=== PATIENT | female | born 1990 | race Caucasian/White ===

== ENCOUNTER 2024-12-12 23:43 | Emergency (ER) | payer MEDICAID, SELFPAY ==
[2024-12-12 23:46] VITALS: BMI 36.6
[2024-12-12 23:55] VITALS: BP 141/96; PULSE 96; RESP 18; TEMP 36.7; O2SAT 96
--- NOTE | 2024-12-13 00:09 | PD.EDUPEX ---
Upper Extremity Injury RME/HPI General Chief Complaint: Extremity Injury, Upper Stated Complaint: STABBED LEFT FA WITH TRACY NAIL ACCIDENTALLY Time Seen by Provider: 12/12/24 23:49 Source: patient Arrival date/time: 12/12/24 23:43 This is a case of 34-year-old female with no medical history came into the emergency room due to a punctured wound on the left forearm 1 hour prior to arrival in the emergency room patient accidentally punctured his left forearm while cleaning at the house patient tetanus shot is not up today no other symptoms or injury noted Limitations: no limitations Related Data Previous Rx's ?Medication ?Instructions ?Recorded mupirocin 2 % topical ointment 1 applic topical BID #22 grams 12/13/24 sulfamethoxazole 800 1 tab PO BID #20 tabs 12/13/24 mg-trimethoprim 160 mg tablet (Bactrim DS) Allergies Allergy/AdvReac Type Severity Reaction Status Date / Time azithromycin Allergy Gastrointestinal Verified 12/12/24 23:45 Upset cephalexin (From Keflex) Allergy Gastrointestinal Verified 12/12/24 23:45 Upset Review of Systems Review of Systems Systems Reviewed: All systems reviewed, normal except as documented Constitutional Constitutional: Reports system reviewed and no additional complaints, except as documented and Reports as per HPI Cardiovascular Cardiovascular: Reports system reviewed and no additional complaints, except as documented and Reports as per HPI Respiratory Respiratory: Reports system reviewed and no additional complaints, except as documented and Reports as per HPI Gastrointestinal Gastrointestinal: Reports system reviewed and no additional complaints, except as documented and Reports as per HPI Musculoskeletal Musculoskeletal: Reports system reviewed and no additional complaints, except as documented and Reports as per HPI Neurologic Neurologic: Reports system reviewed and no additional complaints, except as documented and Reports as per HPI Past Medical History Social History SMOKING STATUS: Never smoker ED Exam General Limitations: Present no limitations General appearance: Present alert, in no apparent distress and other (Patient is awake alert oriented not in distress nontoxic looking well-hydrated well-nourished) Head Head exam: Present atraumatic, normocephalic and normal inspection Eye Eye exam: Present normal appearance, PERRL and EOMI ENT ENT exam: Present normal exam, normal oropharynx and mucous membranes moist Neck Neck exam: Present normal inspection, full ROM and trachea midline; Absent tenderness, meningismus or lymphadenopathy Chest Chest inspection: Present normal inspection and symmetric chest wall rise; Absent tenderness Respiratory Respiratory exam: Present normal lung sounds bilaterally; Absent respiratory distress, wheezes, stridor, accessory muscle use or prolonged expiratory phase Cardiovascular Cardiovascular exam: Present regular rate, normal rhythm and normal heart sounds; Absent bradycardia, tachycardia, irregular rhythm, systolic murmur or diastolic murmur Abdominal Exam Abdominal exam: Present soft and normal bowel sounds Extremities Exam Extremities exam: Present normal inspection and full ROM Expanded Upper Extremity Exam Forearm/Wrist exam: Present normal inspection, full ROM and other (ROM intact neurovascular intact patient noted to have small puncture wound on the left forearm no redness no foreign body no cellulitis no abscess); Absent tenderness, swelling, abrasion, laceration, ecchymosis, deformity, crepitus, dislocation, erythema, tenderness over anatomical snuff box or pain with axial thumb loading Hand exam: Present normal inspection and full ROM; Absent tenderness or swelling Back Exam Back exam: Present normal inspection and full ROM Neurological Exam Neurological exam: Present alert, oriented X3, CN II-XII intact, normal gait and reflexes normal; Absent motor sensory deficit Psychiatric Psychiatric exam: Present normal affect and normal mood Skin Skin exam: Present warm, dry, intact, normal color and other (ROM intact neurovascular intact patient noted to have small puncture wound on the left forearm no redness no foreign body no cellulitis no abscess) Course Quality Measures none Orders Category Date Time Status TET,DIP/PERT AC (Adult)-Tdap [Boostrix Adult (Tdap) Med 12/13/24 00:06 Discontinued Vacc] 0.5 ml IMI .ONCE ONE Trimethoprim/Sulfa 160/800 Ds [Bactrim Ds] Med 12/13/24 00:06 Discontinued 1 tab PO X1 ONE Vital Signs Vital signs: Vital Signs Temperature 98.1 F 12/12/24 23:55 Pulse Rate 96 12/12/24 23:55 Respiratory Rate 18 12/12/24 23:55 Blood Pressure 141/96 H 12/12/24 23:55 Pulse Oximetry (%) 96 12/12/24 23:55 Oxygen Delivery Method Room Air 12/12/24 23:55 Oxygen saturation is 96% in room air Extremity Injury MDM Narrative MDM Narrative:: This is a case of 34-year-old female with no medical history came into the emergency room due to a punctured wound on the left forearm 1 hour prior to arrival in the emergency room patient accidentally punctured his left forearm while cleaning at the house patient tetanus shot is not up today no other symptoms or injury noted physical examination patient is awake alert oriented not in distress nontoxic looking well-hydrated well-nourished noted left forearm puncture wound small no bleeding no other injury no bone or tendon injury no foreign body no redness no cellulitis no abscess ROM intact neurovascular intact the rest of the physical examination neurological exam is normal and unremarkable wound was cleaned with alcohol and Betadine and applied triple antibiotic ointment and covered with nonadherent gauze and Viktor bandage patient was given Tdap here in the emergency room and started to Bactrim to prevent infection patient was prescribed with Bactrim and mupirocin ointment patient will follow-up with PCP in 2 days for evaluation and for any worsening symptoms or any signs and symptoms of infection return to the emergency room immediately or call 911 Patient was discharged with comfortable condition walking with stable gait. Patient verbalized no further complains explained diagnosis and answered patient question. Patient is comfortable with the proposed management plan including the need to follow up with his/her primary care physician and any specialist if applicable Discussed patient for any urgent condition or worsening sx, He/She needed to go to emergency room immediately or call 911. Patient acknowledge the responsibility to follow up as instructed and to monitor her/his symptoms. For any persistence of the symptoms for more than 3-5 days return precaution advised. Discussed the result of the test and was given printed discharge instruction Patient data External records reviewed:: [facility] previous records Clinical information provided by:: patient Social determinants that could affect healthcare access:: none Patient has the following chronic illnesses:: None How is presenting disease/condition affected by chronic disease/condition?: no chronic disease Evaluation data The following diagnostics were reviewed and interpreted by me:: other (specify) (None) Lab and/or radiology exams considered but not ordered:: None Interpretation Summary: None Medications / Prescriptions Medications or Prescriptions considered but not ordered:: Given Medication administrations:: Medication Administration History Discontinued Medications Diphtheria/Tetanus/Acell Pertussis (Diphth,Pertuss(Acell),Tet Vac 0.5 Ml Syr- Adult) 0.5 ml IMi .ONCE ONE Stop: 12/13/24 00:07 Trimethoprim/Sulfamethoxazole (Trimethoprim/Sulfa 160/800 Ds Tablet) 1 tab PO X1 ONE Stop: 12/13/24 00:07 Given Consultations Consultation(s) initiated? (list below): No Diagnosis Upper Extremity Injury Differential Diagnosis: other (Puncture wound left forearm) Most likely diagnosis given after review of the tests above:: Punctured wound left forearm Admission Indicated Admission indicated?: not indicated Explain why admission is indicated or not indicated:: Not indicated Admission Request Was there a request for admission?: No Admission Attestation Admission request attestation: Not indicated Disposition Plan Disposition Plan: Discharge Discharge Attestation Discharge Attestation: The patient and all family members were given an opportunity to ask questions and understood the discharge instructions. Discharge instructions specifically effects, indications for sooner follow up or return to the emergency department, and the expected course of current diagnosis. Patient condition: Stable Discharge Plan Plan Patient Disposition: HOME (Self Care) Patient condition on transfer: Stable Prescriptions/Referrals Prescriptions/Med Rec: New sulfamethoxazole-trimethoprim [Bactrim DS] 800-160 mg tablet 1 tab PO BID Qty: 20 0RF mupirocin 2 % ointment 1 applic topical BID Qty: 22 0RF Problem List Clinical Impression: Puncture wound of forearm, left Patient/Caregiver Discharge Instructions Education Materials: First Aid: Punctures, ED Puncture Wound (General) Additional Instructions: Follow-up with your primary care physician in 2 days for reevaluation worsening symptoms or any emergent concern call 911 or go to the nearest emergency room take your medication as directed finish the course of antibiotic wound care daily keep the wound clean and dry for any redness swelling discharge from the wound pain fever chills return to the emergency room immediately or call 911 Print Language: Citizen Of [place] Stand Alone Forms: Danyelle Award Info., Patient Portal Info Letter PA/NEHEMIAS Supervising Physician SHAHRIAR/ENHEMIAS Supervising Physician: Dr. Manzano
[2024-12-13] MEDS: DIPHTH,PERTUSS(ACELL),TET VAC 0.5 ML SYR- ADULT IMi (00:14)
[2024-12-13] MEDS: TRIMETHOPRIM/SULFA 160/800 DS TABLET 1 TAB PO (00:14)
== END 2024-12-13 00:18 | disposition home or self-care (01) ==
PROVIDERS: Emergency Provider Emergency Medicine
DX: S51.832A Puncture wound without foreign body of left forearm, initial encounter (principal); W45.0XXA Nail entering through skin, initial encounter; Z23 Encounter for immunization
CPT/HCPCS: 90471; 90715; 99282; A9270